=== PATIENT | female | born 1985 | race Caucasian/White ===

== ENCOUNTER 2025-08-26 20:50 | Emergency (ER) | payer MEDICAID ==
[~2025-08-26] VITALS: Ht 162.6 cm; Wt 61.2 kg
[2025-08-26 21:59] LABS: APPEARANCE,URINE CLEAR (CLEAR); BLOOD, URINE Large Ery/uL (NEGATIVE); LEUKOCYTE ESTERASE ,URINE Negative (NEGATIVE); NITRITE, URINE NEGATIVE (NEGATIVE); UGLUCOSE Negative (NEGATIVE)
[2025-08-26 22:11] LABS: PLATELET COUNT (AUTO) 174 K/uL (150-450); RED BLOOD CELL COUNT(AUTO) 3.83 MIL/uL (4.0-5.2); RED CELL DISTRIBUTION WIDTH 12.6 % (11.5-15.0); WHITE BLOOD COUNT (AUTO) 8.8 K/uL (4.3-11.0)
[2025-08-26 22:20] LABS: CALCIUM, SERUM 8.8 mg/dL (8.5-10.1); CREATININE 0.9 mg/dL (0.6-1.3); SODIUM SERUM 138.0 mmol/L (136-145); UREA NITROGEN, BLOOD 14.0 mg/dL (7-18)
[2025-08-26 22:26] LABS: LACTIC ACID 1.9 mmol/L (0.4-2.0)
[2025-08-26 22:31] LABS: INR 0.96 (0.91-1.10)
[2025-08-26 22:46] LABS: ASPARTATE AMINOTRANSFERASE 18.0 U/L (15-37); PREGNANCY TEST SERUM QUAN 13699.0 mIU/mL (0-6); TOTAL PROTEIN, SERUM 7.7 g/dL (6.4-8.2)
[2025-08-26] MEDS: IV NS 0.9% 1,000 ML BAG IV ONE (23:00)
[2025-08-26] MEDS ORDERED: ONDANSETRON HCL/PF 4 MG/2 ML VIAL ONE (23:01)
[2025-08-26] MEDS ORDERED: MORPHINE SULFATE INJ 4 MG/ML DISP.SYRIN ONE (23:02)
[2025-08-26] MEDS: ONDANSETRON HCL/PF 4 MG/2 ML VIAL IVP ONE (23:08)
[2025-08-26] MEDS: MORPHINE SULFATE INJ 2 MG/ML DISP.SYRIN IV ONE (23:08)
[2025-08-26 23:21] LABS: ADD URINE CULTURE NO; SQUAMOUS EPITHELIAL CELL,UR 0-2 /HPF (None Seen)
[2025-08-27] MEDS ORDERED: AMOXICILLIN TRIHYDRATE 250 MG CAPSULE ONE (03:17)
[2025-08-27] MEDS ORDERED: AMOX500T2 PO (03:19)
[2025-08-27] MEDS ORDERED: MISO200T PO (03:19)
[2025-08-27] MEDS: AMOXICILLIN TRIHYDRATE 500 MG CAPSULE PO ONE (03:30)
[2025-08-27] MEDS: MISOPROSTOL 100 MCG TABLET PO SCH (03:39)
[2025-08-27 03:42] VITALS: BP 99/72; TEMP 98.5; O2SAT 100
== END 2025-08-27 03:43 | disposition home or self-care (01) ==
LOC: ER 21:03
DX: O03.4 Incomplete spontaneous abortion without complication (principal); R50.9 Fever, unspecified; Z3A.01 Less than 8 weeks gestation of pregnancy; R10.20 Pelvic and perineal pain unspecified side; Z20.822 Contact with and (suspected) exposure to COVID-19
CPT/HCPCS: 99285; 96374; 76856; 96361; 96375; 87426; 87804 ×2; 85025; 80048; 83605 ×2; 80076; 81001; 36415; 85730; 84702; J2270; J2405; J7030